=== PATIENT | male | born 1995 ===

== ENCOUNTER 2016-11-27 17:03 | Emergency (ER) | payer OTHER ==
[2016-11-27 17:29] VITALS: TEMP 98.6
--- NOTE | 2016-11-27 17:53 | C.PDOC ---
History Of Present Illness 21M c/o low back pain after he fell on his buttock while riding his skateboard this morning. he has not taken anything for pain. Time Seen by Provider: 11/27/16 17:40 Chief Complaint (Nursing): Back Pain Past Medical History Vital Signs: Last Vital Signs Temp 98.6 F 11/27/16 17:29 Pulse 81 11/27/16 17:29 Resp 20 11/27/16 17:29 BP 124/60 11/27/16 17:29 Pulse Ox 98 11/27/16 17:56 Family History: States: Other Other Family History: nc - Social History Hx Alcohol Use: No Hx Substance Use: No - Immunization History Hx Tetanus Toxoid Vaccination: No Hx Influenza Vaccination: No Hx Pneumococcal Vaccination: No Review Of Systems Constitutional: Negative for: Fever Cardiovascular: Negative for: Chest Pain Respiratory: Negative for: Cough, Shortness of Breath Gastrointestinal: Negative for: Vomiting, Abdominal Pain Musculoskeletal: Positive for: Back Pain. Negative for: Neck Pain Neurological: Negative for: Weakness, Numbness, Altered Mental Status, Headache Physical Exam - Physical Exam Appears: Well, Non-toxic, No Acute Distress Head: Atraumatic, Normacephalic Lips: No Swelling, No Contusion Neck: Normal ROM, No Midline Cervical Tenderness Respiratory: No Accessory Muscle Use Back: Normal Inspection, Vertebral Tenderness (lumbar diffuse, non focal) Extremity: Normal ROM, No Deformity, No Swelling Neurological/Psych: Oriented x3, Normal Motor, Normal Sensation, Other (no focal deficits) Gait: Steady ED Course And Treatment O2 Sat by Pulse Oximetry: 98 Medical Decision Making Medical Decision Making: XR ls- no acute fracture Disposition - Disposition Referrals: [facility] [Outside] Disposition: HOME/ ROUTINE Disposition Time: 18:53 Condition: GOOD Additional Instructions: Please follow up with your primary doctor. Return to the ER for any worsening symptoms or for any other concerns. Prescriptions: Naproxen [Naprosyn] 500 mg PO Q12H PRN #10 tablet PRN Reason: Pain, Moderate (4-7) Instructions: Contusion in Adults (ED) Forms: General Discharge Instructions - Clinical Impression Clinical Impression: Low back pain
[2016-11-27 18:57] VITALS: BP 119/71; PULSE 78; RESP 17; O2SAT 99
--- NOTE | 2016-11-28 12:50 | RAD ---
PROCEDURE: Radiographs of the Lumbar Spine. HISTORY: fall off skateboard, low back pain COMPARISON: No prior. FINDINGS: BONES: Normal alignment. No listhesis. No fracture. DISC SPACES: Unremarkable. OTHER FINDINGS: Constipation without fecal impaction or obstruction. IMPRESSION: No acute findings related to/accounting for the clinical presentation.
== END 2016-11-27 18:58 | disposition home or self-care (01) ==
LOC: C.ER 17:03
DX: M54.5 Low back pain (principal); V00.131A Fall from skateboard, initial encounter; Y93.51 Activity, roller skating (inline) and skateboarding; Y92.410 Unspecified street and highway as the place of occurrence of the external cause
CPT/HCPCS: 72100; 96372; 99283; J1885